=== PATIENT | male | born 1955 ===

== ENCOUNTER 2018-11-06 13:33 | Emergency (ER) | payer MEDICAID ==
[2018-11-06 13:44] VITALS: TEMP 98
[2018-11-06 13:56] VITALS: RESP 18; O2SAT 98
[2018-11-06] MEDS ORDERED: DiphenhydrAMINE 50 mg/ml Inj IVP STA (14:34)
--- NOTE | 2018-11-06 14:45 | ED PDOC ---
Arrival/HPI <Mark Neves - Last Filed: 11/06/18 15:07> - General Historian: Patient - History of Present Illness Narrative History of Present Illness (Text): 11/06/18 14:35 Patient is a 63M w/ a PMH of HTN presenting to [facility] [place] ED for complaings of lip swelling. Patient reported that he was recently started on lisinopril on 10/25 by his grinder. Patient reported he saw his dentist yesterday and then went to bed last night w/o any of the s/s he's presenting w/ today. Patient woke up this morning w/ swelling appreciated in his upper and lower lip which worsened after he took another lisinopril after waking up. Patient denies any difficulty swallowing, sensation of throat closing, difficulty breathing. Denies any itching sensation or flushing Cardio: [place] HomeRx: Amlodipine, Lisinopril, Benadryl - Pharmacy: [facility] PMH: HTN All: NKDA Time/Duration: Prior to Arrival, 4-6 hours Symptom Onset: Gradual Symptom Course: Worsening Quality: Fullness <Rambo Benjamin - Last Filed: 11/06/18 16:35> - General Chief Complaint: Allergic Reaction Time Seen by Provider: 11/06/18 14:23 Past Medical History - Provider Review Nursing Documentation Reviewed: Yes - Cardiac Hx Cardiac Disorders: Yes Hx Hypertension: Yes - Pulmonary Hx Respiratory Disorders: No - Neurological Hx Neurological Disorder: No - HEENT Hx HEENT Disorder: No - Renal Hx Renal Disorder: No - Endocrine/Metabolic Hx Endocrine Disorders: No - Hematological/Oncological Hx Blood Disorders: No - Integumentary Hx Dermatological Disorder: No - Musculoskeletal/Rheumatological Hx Musculoskeletal Disorders: No - Gastrointestinal Hx Gastrointestinal Disorders: No - Genitourinary/Gynecological Hx Genitourinary Disorders: Yes Other/Comment: VARICOCELE - Psychiatric Hx Psychophysiologic Disorder: No Hx Substance Use: No <Rambo Benjamin - Last Filed: 11/06/18 16:35> Family/Social History - Physician Review Nursing Documentation Reviewed: Yes Family/Social History: Unknown Family HX Smoking Status: Never Smoked Hx Alcohol Use: Yes Frequency of alcohol use: Socially Hx Substance Use: No <Rambo Benjamin - Last Filed: 11/06/18 16:35> Allergies/Home Meds <Mark Neves - Last Filed: 11/06/18 15:07> <Rambo Benjamin - Last Filed: 11/06/18 16:35> Allergies/Adverse Reactions: Allergies No Known Allergies Allergy (Verified 11/06/18 13:37) Home Medications: Home Meds Medication Instructions Recorded Confirmed Benzonatate [Tessalon Perle] 1 cap PO BID 11/06/18 11/06/18 amLODIPine [Norvasc] 10 mg PO DAILY 11/06/18 11/06/18 Review of Systems - Review of Systems Constitutional: Normal Eyes: Normal ENT: Other (Swelling of lips; No throat pain; No dysphagia ) Respiratory: Normal Cardiovascular: Normal Gastrointestinal: Normal Genitourinary Male: Normal Musculoskeletal: Normal Skin: Normal Neurological: Normal Endocrine: Normal Hemo/Lymphatic: Normal Psychiatric: Normal <Rambo Benjamin - Last Filed: 11/06/18 16:35> Physical Exam Vital Signs Temp Pulse Resp BP Pulse Ox 11/06/18 13:56 98.0 F 76 18 137/74 98 11/06/18 13:39 98.0 F 76 77 H 137/88 96 <Mark Neves - Last Filed: 11/06/18 15:07> Vital Signs Temp Pulse Resp BP Pulse Ox 11/06/18 13:56 98.0 F 76 18 137/74 98 11/06/18 13:39 98.0 F 76 77 H 137/88 96 Temperature: Afebrile Blood Pressure: Normal Pulse: Regular Respiratory Rate: Normal Appearance: Positive for: Well-Appearing, Non-Toxic, Comfortable Pain Distress: None Mental Status: Positive for: Alert and Oriented X 3 - Systems Exam Head: Present: Atraumatic, Normocephalic Pupils: Present: PERRL Extroacular Muscles: Present: EOMI Conjunctiva: Present: Normal Mouth: Present: Moist Mucous Membranes, Other (No erythema/edema appreciated in mouth; Significant swelling of lips L>R .) Respiratory/Chest: Present: Clear to Auscultation, Good Air Exchange. No: Respiratory Distress Cardiovascular: Present: Regular Rate and Rhythm, Normal S1, S2 Abdomen: No: Tenderness Upper Extremity: Present: Normal Inspection Lower Extremity: Present: Normal Inspection, NORMAL PULSES. No: Edema Neurological: Present: GCS=15, CN II-XII Intact Skin: Present: Warm, Dry, Normal Color <Rambo Benjamin - Last Filed: 11/06/18 16:35> Medical Decision Making ED Course and Treatment: 11/06/18 15:07 Patient is a 63 year old male presenting to the emergency room complaining of lip swelling. In agreement with resident note, which includes further HPI details. Patient was seen and evaluated with resident, came up with plan and treatment together. Plan: -- Benadryl - Medication Orders Current Medication Orders: Discontinued Medications Diphenhydramine HCl (Benadryl) 50 mg PO STAT STA Stop: 11/06/18 14:47 Last Admin: 11/06/18 14:53 Dose: 50 mg <Mark Neves - Last Filed: 11/06/18 15:07> ED Course and Treatment: 11/06/18 14:50 Most likely angioedema 2/2 Lisnopril given recent use of lisinopril and worsening w/ use of lisinopril this morning No s/s of respiratory compromise at this time Will give Benadryl 50mg PO and monitor for worsening/ respiratory compromise 11/06/18 16:22 Patient reevaluated - still voicing no complaints of airway compromise / throat swelling Swelling of lips significantly improving Will DC pt. home w/ follow up instructions + Benadryl - Medication Orders Current Medication Orders: Diphenhydramine HCl (Benadryl) 50 mg IVP STAT STA Stop: 11/06/18 14:35 <Rambo Benjamin - Last Filed: 11/06/18 16:35> - PA / STROBOSCOPE OPERATOR / Resident Statement / has reviewed & agrees with the documentation as recorded. / has examined the patient and agrees with the treatment plan. - Scribe Statement The provider has reviewed the documentation as recorded by the Kesha Donahue All medical record entries made by the Homeroibmarie were at my direction and personally dictated by me. I have reviewed the chart and agree that the record accurately reflects my personal performance of the history, physical exam, medical decision making, and the department course for this patient. I have also personally directed, reviewed, and agree with the discharge instructions and disposition. <Mark Neves - Last Filed: 11/06/18 15:07> Disposition/Present on Arrival <Kavon Neveswilmar Andre - Last Filed: 11/06/18 15:07> - Present on Arrival Any Indicators Present on Arrival: No History of DVT/PE: No History of Uncontrolled Diabetes: No Urinary Catheter: No History of Decub. 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
[2018-11-06 15:35] VITALS: BP 135/69; PULSE 69
== END 2018-11-06 17:12 | disposition home or self-care (01) ==
LOC: ED 13:33
DX: T78.3XXA Angioneurotic edema, initial encounter (principal); T44.5X5A Adverse effect of predominantly beta-adrenoreceptor agonists, initial encounter